=== PATIENT | male | born 1960 | race Native Hawaiian/Other Pacific Islander ===

== ENCOUNTER 2017-09-06 11:32 | Observation (INO) | payer SELFPAY ==
[~2017-09-06] VITALS: Ht 165.1 cm; Wt 65.0 kg
[2017-09-06 11:35] VITALS: BP 161/96; PULSE 61; RESP 17; TEMP 98; O2SAT 98
--- NOTE | 2017-09-06 11:41 | PD ---
Physical Exam Date Seen by Provider: Sep 06, 2017 Time Seen by Provider: 11:36 Narrative 57-year-old male presents to emergency Department with complaints of chest pain since 8:00 last night. Patient reports his pain is central in his chest. He rates the pain a 4/10. He states it feels as if he has difficulty taking a breath. He denies any shortness of breath. No nausea vomiting. No diaphoresis. He was seen in urgent care this morning and referred to the ER. He states that he had similar discomfort last month and was seen at urgent care and started on medication for reflux. No history of coronary disease, hypertension or diabetes. He does take an aspirin a day. Vital signs reviewed. Pt. waiting for bed placement. [facility] Medical Record Reviewed: No Supervised Visit with MAURICIO: Douglas Lau Sep 06, 2017 11:41
--- NOTE | 2017-09-06 11:41 | PD ---
Physical Exam Date Seen by Provider: Sep 06, 2017 Time Seen by Provider: 11:36 Narrative 57-year-old male presents to emergency Department with complaints of chest pain since 8:00 last night. Patient reports his pain is central in his chest. He rates the pain a 4/10. He states it feels as if he has difficulty taking a breath. He denies any shortness of breath. No nausea vomiting. No diaphoresis. He was seen in urgent care this morning and referred to the ER. He states that he had similar discomfort last month and was seen at urgent care and started on medication for reflux. No history of coronary disease, hypertension or diabetes. He does take an aspirin a day. Vital signs reviewed. Pt. waiting for bed placement. [facility] Medical Record Reviewed: No Supervised Visit with MAURICIO: Douglas Lau Sep 06, 2017 11:41
--- NOTE | 2017-09-06 11:41 | PD ---
Physical Exam Date Seen by Provider: Sep 06, 2017 Time Seen by Provider: 11:36 Narrative 57-year-old male presents to emergency Department with complaints of chest pain since 8:00 last night. Patient reports his pain is central in his chest. He rates the pain a 4/10. He states it feels as if he has difficulty taking a breath. He denies any shortness of breath. No nausea vomiting. No diaphoresis. He was seen in urgent care this morning and referred to the ER. He states that he had similar discomfort last month and was seen at urgent care and started on medication for reflux. No history of coronary disease, hypertension or diabetes. He does take an aspirin a day. Vital signs reviewed. Pt. waiting for bed placement. [facility] Medical Record Reviewed: No Supervised Visit with MAURICIO: Douglas Lau Sep 06, 2017 11:41
[2017-09-06] MEDS ORDERED: OMEP40CA2 PO (11:43)
[2017-09-06] MEDS ORDERED: ASPIRIN 81 MG CHEW TAB PO ONE (12:00)
[2017-09-06] MEDS ORDERED: MORPHINE SULFATE 4 MG/ML INJ IV PUSH ONE (12:00)
[2017-09-06] MEDS ORDERED: SODIUM CHLORID 0.9% 500 ML INJ 500 ML IV ONE (12:00)
[2017-09-06] MEDS ORDERED: SODIUM CHLORIDE 0.9% FLUSH 10 ML FLUSH IVF PRN (12:00)
[2017-09-06] MEDS ORDERED: NITROGLYCERIN 2% OINT 1 GM PACKET TOP ONE (12:00)
[2017-09-06] MEDS: METOPROLOL TARTRATE 5 MG/5 ML VIAL IVS SCH ×3 (12:05→12:31)
--- NOTE | 2017-09-06 12:07 | PD ---
HPI Chief Complaint: Chest Pain Time Seen by Provider: 11:54 Travel History International Travel<30 days: No Contact w/Intl Traveler<30days: No Traveled to known affect area: No History of Present Illness HPI 57-year-old Croatian male who does not speak Indonesian presents to emergency department after being seen at [facility] with anterior chest pain which started at 8 PM last evening. Patient was evaluated there, showing ST elevations in the the V2, 3 and 4 leads. Patient was given 325 mg aspirin as well as 0.4 mg sublingual nitroglycerin with improvement of his pain. Patient refused ambulance transfer, but was brought here by his family friend for further evaluation and treatment. Patient's pain is currently a 6 out of 10. Patient has no history of heart disease in the past. He has history of kidney stones requiring stents in the past. He describes it as a sharp tight pain in the anterior chest. He has nausea but no vomiting. No recent fever chills or other symptoms. He has no known drug allergies. PFSH Past Medical History Chest Pain: Yes Kidney Stones: Yes Past Surgical History Other Surgery: Yes (FOR KIDNEY STONES) Social History Alcohol Use: No Tobacco Use: No Substance Use: No Allergies-Medications (Allergen,Severity, Reaction): Coded Allergies: No Known Allergies (Unverified , 09/06/17) Reported Meds & Prescriptions Reported Meds & Active Scripts Active Reported Omeprazole 40 Mg Cap 40 Mg PO DAILY Review of Systems ROS Limitations: Language Barrier Except as stated in HPI: all other systems reviewed are Neg General / Constitutional: No: Fever Eyes: No: Visual changes HENT: No: Headaches Cardiovascular: Positive: Chest Pain or Discomfort, No: Palpitations, Irregular Rhythm, Tachycardia, Diaphoresis, Syncope, Dyspnea on exertion, Varicosities, Edema, Claudication Respiratory: No: Shortness of Breath Gastrointestinal: No: Abdominal Pain Genitourinary: No: Dysuria Musculoskeletal: No: Pain Skin: No Rash Neurologic: No: Weakness Psychiatric: No: Depression Endocrine: No: Polydipsia Hematologic/Lymphatic: No: Easy Bruising Physical Exam Narrative GENERAL: Patient appears anxious. SKIN: Warm and dry. Normal color. Normal turgor. No diaphoresis. HEAD: Atraumatic. Normocephalic. EYES: Pupils equal and round. No scleral icterus. No injection or drainage. ENT: No nasal bleeding or discharge. Mucous membranes pink and moist. Pharynx is clear. Airway is patent. NECK: Trachea midline. Supple nontender. CARDIOVASCULAR: Regular rate and rhythm. No murmurs gallops or rubs appreciated. RESPIRATORY: No accessory muscle use. Clear to auscultation. Breath sounds equal bilaterally. GASTROINTESTINAL: Abdomen soft, non-tender, nondistended. Hepatic and splenic margins not palpable. MUSCULOSKELETAL: Extremities without clubbing, cyanosis, or edema. No obvious deformities. NEUROLOGICAL: Awake and alert. No obvious cranial nerve deficits. Motor grossly within normal limits. Five out of 5 muscle strength in the arms and legs. Normal speech. PSYCHIATRIC: Appropriate mood and affect; insight and judgment normal. Data Data Last Documented VS Vital Signs Date Time Temp Pulse Resp B/P (MAP) Pulse Ox O2 Delivery O2 Flow Rate FiO2 09/06/17 11:35 98.0 61 17 161/96 (117) 98 Room Air Orders Orders Electrocardiogram (09/06/17 11:54) Basic Metabolic Panel (Bmp) (09/06/17 11:54) Ckmb (Isoenzyme) Profile (09/06/17 11:54) Complete Blood Count With Diff (09/06/17 11:54) Magnesium (Mg) (09/06/17 11:54) Prothrombin Time / Inr (Pt) (09/06/17 11:54) Act Partial Throm Time (Ptt) (09/06/17 11:54) Troponin I (09/06/17 11:54) Chest, Single Ap (09/06/17 11:54) Ecg Monitoring (09/06/17 11:54) Bilateral Bp Monitoring (09/06/17 11:54) Iv Access Insert/Monitor (09/06/17 11:54) Oximetry (09/06/17 11:54) Oxygen Administration (09/06/17 11:54) Aspirin Chew (Aspirin Chew) (09/06/17 12:00) Morphine Inj (Morphine Inj) (09/06/17 12:00) Nitroglycerin 2% Oint (Nitroglycerin 2% (09/06/17 12:00) Sodium Chloride 0.9% Flush (Ns Flush) (09/06/17 12:00) Metoprolol Tartrate Inj (Lopressor Inj) (09/06/17 12:00) Sodium Chlorid 0.9% 500 Ml Inj (Ns 500 M (09/06/17 12:00) Ondansetron Inj (Zofran Inj) (09/06/17 12:15) CKMB (09/06/17 12:20) CKMB% (09/06/17 12:20) Labs Laboratory Tests Test 09/06/17 12:20 Prothrombin Time 11.2 SEC Prothromb Time International Ratio 1.0 RATIO Activated Partial Thromboplast Time 21.9 SEC Blood Urea Nitrogen 11 MG/DL Creatinine 1.31 MG/DL Random Glucose 93 MG/DL Calcium Level 9.8 MG/DL Magnesium Level 2.1 MG/DL Sodium Level 136 MEQ/L Potassium Level 3.6 MEQ/L Chloride Level 103 MEQ/L Carbon Dioxide Level 26.3 MEQ/L Anion Gap 7 MEQ/L Estimat Glomerular Filtration Rate 57 ML/MIN Total Creatine Kinase 222 U/L Troponin I LESS THAN 0.02 NG/ML MDM Medical Decision Making Medical Screen Exam Complete: Yes Emergency Medical Condition: Yes Differential Diagnosis Chest pain. OH. Non-STEMI. Narrative Course Patient appears medically stable at time of exam. Labs ordered including CBC, CMP, cardiac panel, coagulation studies, and urinalysis. EKG and chest x-ray are ordered. EKG shows sinus bradycardia with flipped T-wave in lead 3. This is reviewed with Dr. Valdes. Patient is given 500 mL was normal saline bolus, 4 mg Zofran IV, 2 mg morphine IV, 5 mg metoprolol IV, and 1 inch of 2% nitroglycerin paste. Chest x-ray shows no acute process per radiologist. Coagulation studies are normal. CMP shows normal electrolytes, creatinine of 1.31, GFR 57, first troponin is less than 0.02. CBC 1330 hrs. patient states pain is improved to a 2 out of 10. Patient to be admitted to the chest pain center for further evaluation and treatment. Diagnosis Primary Impression: Chest pain at rest Admitting Information Admitting Physician Requests: Observation Condition: Stable Brandon Rodríguez Sep 06, 2017 12:07
[2017-09-06] MEDS ORDERED: ONDANSETRON HCL 4 MG/2 ML VIAL IV PUSH ONE (12:15)
--- NOTE | 2017-09-06 12:45 | RADRPT ---
EXAM DATE/TIME: 09/06/2017 12:30 [facility] COMPARISON: No previous studies available for comparison. INDICATIONS : Patient states chest pain. MEDICAL HISTORY : None. SURGICAL HISTORY : None. ENCOUNTER: Initial ACUITY: 1 day PAIN SCORE: 8/10 LOCATION: Bilateral chest FINDINGS: A single view of the chest demonstrates the lungs to be symmetrically aerated without evidence of mas s, infiltrate or effusion. The cardiomediastinal contours are unremarkable. Osseous structures are intact. CONCLUSION: 1. No acute cardiopulmonary disease. Jose Hicks MD on September 06, 2017 at 12:43 Board Certified Radiologist. This report was verified electronically.
[2017-09-06 13:00] VITALS: BP 151/90; PULSE 50
[2017-09-06 13:05] LABS: PROTHROMBIN TIME - PATIENT 11.2 SEC (9.8-11.6)
[2017-09-06 13:20] LABS: BICARBONATE 26.3 MEQ/L (21.0-32.0); BLOOD UREA NITROGEN 11 MG/DL (7-18); CALCIUM 9.8 MG/DL (8.5-10.1); CHLORIDE 103 MEQ/L (98-107); CREATININE 1.31 MG/DL (0.60-1.30); GLOMERULAR FILTRATION RATE 57 ML/MIN (>89); GLUCOSE,RANDOM 93 MG/DL (74-106); MAGNESIUM 2.1 MG/DL (1.5-2.5); SODIUM (NA) 136 MEQ/L (136-145)
[2017-09-06 13:25] LABS: TROPONIN I LESS THAN 0.02 NG/ML (0.02-0.05)
[2017-09-06 14:03] LABS: AUTOMATED NEUTROPHIL # 8.1 TH/MM3 (1.8-7.7); BASOPHIL # 0.1 TH/MM3 (0-0.2); BASOPHIL % 0.8 % (0.0-2.0); EOSINOPHIL # 0.2 TH/MM3 (0-0.4); EOSINOPHIL % 2.2 % (0.0-4.0); HEMATOCRIT 43.2 % (39.0-51.0); HEMOGLOBIN 14.9 GM/DL (13.0-17.0); LYMPH % 14.3 % (9.0-44.0); LYMPHOCYTE # 1.5 TH/MM3 (1.0-4.8); MEAN CELL VOLUME 81.4 FL (80.0-100.0); MEAN CORPUSCULAR HGB CONC 34.4 % (32.0-36.0); MEAN PLATELET VOLUME 8.8 FL (7.0-11.0); MONO % 4.4 % (0.0-8.0); MONOCYTE # 0.5 TH/MM3 (0-0.9); NEUT % 78.3 % (16.0-70.0); PLATELET COUNT 199 TH/MM3 (150-450); RED BLOOD COUNT 5.31 MIL/MM3 (4.50-5.90); WHITE BLOOD COUNT 10.4 TH/MM3 (4.0-11.0)
[2017-09-06] MEDS ORDERED: ONDANSETRON HCL 4 MG/2 ML VIAL IV PUSH PRN (15:00)
[2017-09-06] MEDS ORDERED: ACETAMINOPHEN 500 MG CPLT PO PRN (15:00)
[2017-09-06] MEDS ORDERED: NITROGLYCERIN 0.4 MG SL 25 TABS/BTL SL PRN (15:00)
[2017-09-06 16:28] LABS: TROPONIN I LESS THAN 0.02 NG/ML (0.02-0.05)
[2017-09-06 18:48] VITALS: BP 132/81; PULSE 65
[2017-09-06 19:46] LABS: TROPONIN I LESS THAN 0.02 NG/ML (0.02-0.05)
[2017-09-06 20:36] VITALS: BP 135/88; PULSE 66; RESP 18; TEMP 98.2; O2SAT 99
[2017-09-06 21:10] VITALS: PULSE 63
[2017-09-06] MEDS: SODIUM CHLORIDE 0.9% FLUSH 10 ML FLUSH IV FLUSH SCH (22:56)
[2017-09-06 23:22] VITALS: BP 140/91; PULSE 53; RESP 19; TEMP 98.2; O2SAT 99
[2017-09-07] VITALS (8 sets, daily range): BP systolic 102–137; BP diastolic 73–84; PULSE 53–72; RESP 16–20; TEMP 97.8–98.5; O2SAT 96–99
--- NOTE | 2017-09-07 07:57 | HHI.HP ---
HPI Primary Care Physician No Primary Care Physician Chief Complaint Chest pain History of Present Illness 57-year-old male with no past medical history presents to emergency room for further evaluation of chest pain. Interview completed with interpretation services. He is [place] to [place], [place] last [place], and speaks Korean . Onset one month ago. Location substernal. First described as sharp pain and breathing made discomfort worse, but later stated pain not sharp and breathing did not make pain worse. Verified change in description with obstetrical anesthesiologist. No radiation of pain. Duration ranges from 1-5 days. Nonexertional. No associated symptoms of n, v, sob, or diaphoresis. precipitating factors resting and laying still, stating feeling the pain more at rest. Relieving factors movement and keeping busy. No recent illness, injury, trauma, fever, or chills. Review of Systems General: No fatigue,weakness, fever, chills, or recent illness. Has been in his general state of health. Arrived from [facility] ago. CV: As stated above. No current chest pain or pressure. RESP: No SOB, cough, or recent respiratory infection. GI: GI: "Full feeling" after eating, pointing to substernal and throat area. No change in appetite but endorses over the last year decrease his intake due to full feeling. No unintentional weight gain or lost. No bowel changes. Denies feelings of burning or sore taste in back of throat. No nausea or vomiting. EXT: No lower leg edema MS: No discomfort or change in ROM NEURO: No LOC or motor/sensory deficits PSYCH: No anxiety or situational stress. SKIN: No rashes, no concerning lesions Past Family Social History Allergies: Coded Allergies: No Known Allergies (Unverified , 09/06/17) Past Medical History None Past Surgical History "Kidney" surgery Reported Medications Reported Meds & Active Scripts Active Reported No medications, vitamins, or supplementations. Active Ordered Medications Current Medications Medications (Trade) Dose Ordered Sig/Justin Route Start Time Stop Time Status Last Admin (NS Flush) 2 ml UNSCH PRN IVF 09/06/17 12:00 (NS Flush) 2 ml BID IV FLUSH 09/06/17 21:00 09/06/17 22:56 (Tylenol) 500 mg Q4H PRN PO 09/06/17 15:00 09/06/17 22:56 (Zofran Inj) 4 mg Q6H PRN IV PUSH 09/06/17 15:00 (Nitrostat Sl) 0.4 mg Q5M PRN SL 09/06/17 15:00 (Aspirin) 325 mg DAILY PO 09/07/17 09:00 Family History Noncontributory for early onset cardiovascular disease. Social History No known CAD, HTN, DM, or HLD. Lifelong nonsmoker. Denies any alcohol or illegal drug use. Endorses an active lifestyle. Past cardiac testing None Physical Exam Vital Signs Vital Signs Date Time Temp Pulse Resp B/P (MAP) Pulse Ox O2 Delivery O2 Flow Rate FiO2 09/07/17 07:29 98.2 72 20 128/83 (98) 99 09/07/17 06:00 21 09/07/17 04:03 53 09/07/17 03:31 97.8 58 18 102/73 (83) 99 09/07/17 00:19 18 09/07/17 00:05 65 09/06/17 23:22 98.2 53 19 140/91 (107) 99 09/06/17 21:10 63 09/06/17 20:36 98.2 66 18 135/88 (104) 99 09/06/17 18:48 65 132/81 (98) 09/06/17 13:00 50 151/90 (110) 09/06/17 13:00 100 Room Air 09/06/17 11:35 98.0 61 17 161/96 (117) 98 Room Air Physical Exam GENERAL: Alert WN, WD, NAD, pleasant, male HEAD: NC, AT EYES: Sclera clear, conjunctiva without injection ENT: Mucous membranes pink and moist CV: RRR, without murmur, rub, gallop, no JVD, S1-S2 no S3-S4. Chest wall nontender with palpation. RESP: Clear lungs throughout bilateral, no crackles, wheeze, rhonchi, symmetrical chest rise, nonlabored, able to speak in full sentences ABD: Soft, NT, ND, no masses BACK: Scoliosis present EXT: Pulses +24, no dependent edema MS: Normal tone 4 extremities, nontender, no obvious deformities, full range of motion NEURO: CN II through CN XII grossly intact, motor strength 5/5 PSYCH: A+O 3, pleasant affect, appropriate mood, insight and judgment SKIN: Normal turgor, normal texture, no lesions, no rashes, brisk cap refill, even hair distribution Laboratory Laboratory Tests Test 09/06/17 12:20 09/06/17 13:50 09/06/17 15:34 09/06/17 18:30 Prothrombin Time 11.2 Prothromb Time International Ratio 1.0 Activated Partial Thromboplast Time 21.9 Blood Urea Nitrogen 11 Creatinine 1.31 Random Glucose 93 Calcium Level 9.8 Magnesium Level 2.1 Sodium Level 136 Potassium Level 3.6 Chloride Level 103 Carbon Dioxide Level 26.3 Anion Gap 7 Estimat Glomerular Filtration Rate 57 Total Creatine Kinase 222 163 159 Creatine Kinase MB 2.6 2.0 Troponin I LESS THAN 0.02 LESS THAN 0.02 LESS THAN 0.02 White Blood Count 10.4 Red Blood Count 5.31 Hemoglobin 14.9 Hematocrit 43.2 Mean Corpuscular Volume 81.4 Mean Corpuscular Hemoglobin 28.0 Mean Corpuscular Hemoglobin Concent 34.4 Red Cell Distribution Width 13.0 Platelet Count 199 Mean Platelet Volume 8.8 Neutrophils (%) (Auto) 78.3 Lymphocytes (%) (Auto) 14.3 Monocytes (%) (Auto) 4.4 Eosinophils (%) (Auto) 2.2 Basophils (%) (Auto) 0.8 Neutrophils # (Auto) 8.1 Lymphocytes # (Auto) 1.5 Monocytes # (Auto) 0.5 Eosinophils # (Auto) 0.2 Basophils # (Auto) 0.1 CBC Comment DIFF FINAL Differential Comment Result Diagram: 09/06/17 1350 09/06/17 1220 Imaging Last Impressions Chest X-Ray 09/06/17 1154 Signed Impressions: Service Date/Time: Wednesday, September 06, 2017 12:30 - CONCLUSION: 1. No acute cardiopulmonary disease. Jose Hicks MD Course EKG NSR, normal axis, no st t segment changes Caprini VTE Risk Assessment Caprini VTE Risk Assessment: No/Low Risk (score <= 1) Caprini Risk Assessment Model Point Value = 1 Point Value = 2 Point Value = 3 Point Value = 5 Age 41-60 Minor surgery BMI > 25 kg/m2 Swollen legs Varicose veins or History of unexplained or recurrent spontaneous Oral contraceptives or hormone replacement Sepsis (< 1 month) Serious lung disease, including pneumonia (< 1 month) Abnormal pulmonary function Acute myocardial infarction Congestive heart failure (< 1 month) History of inflammatory bowel disease Medical patient at bed rest Age 61-74 Arthroscopic surgery Major open surgery (> 45 min) Laparoscopic surgery (> 45 min) Malignancy Confined to bed (> 72 hours) Immobilizing plaster cast Central venous access Age >= 75 History of VTE Family history of VTE Factor V Leiden Prothrombin [id number] Lupus anticoagulant Anticardiolipin antibodies Elevated serum homocysteine Heparin-induced thrombocytopenia Other congenital or acquired thrombophilia Stroke (< 1 month) Elective arthroplasty Hip, pelvis, or leg fracture Acute spinal cord injury (< 1 month) Prophylaxis Regimen Total Risk Factor Score Risk Level Prophylaxis Regimen 0-1 Low Early ambulation 2 Moderate Order ONE of the following: *Sequential Compression Device (SCD) *Heparin 5000 units SQ BID 3-4 Higher Order ONE of the following medications: *Heparin 5000 units SQ TID *Enoxaparin/Lovenox 40 mg SQ daily (WT < 150 kg, CrCl > 30 mL/min) *Enoxaparin/Lovenox 30 mg SQ daily (WT < 150 kg, CrCl > 10-29 mL/min) *Enoxaparin/Lovenox 30 mg SQ BID (WT < 150 kg, CrCl > 30 mL/min) AND/OR *Sequential Compression Device (SCD) 5 or more Highest Order ONE of the following medications: *Heparin 5000 units SQ TID (Preferred with Epidurals) *Enoxaparin/Lovenox 40 mg SQ daily (WT < 150 kg, CrCl > 30 mL/min) *Enoxaparin/Lovenox 30 mg SQ daily (WT < 150 kg, CrCl > 10-29 mL/min) *Enoxaparin/Lovenox 30 mg SQ BID (WT < 150 kg, CrCl > 30 mL/min) AND *Sequential Compression Device (SCD) Assessment and Plan Assessment and Plan #1 Atypical chest pain-admitted to chest pain center. Ruled out with 3 sets of EKG and cardiac enzymes. Seen and evaluated by Dr. Deepali Squires. Proceed with chemical stress testing. If unremarkable, plans to discharge home later this afternoon. Test and plan of care explained with obstetrical anesthesiologist. #2 GERD-symptoms may be reflux related, omeprazole 20mg PO Altagracia Schumacher Sep 07, 2017 07:57
[2017-09-07] MEDS: SODIUM CHLORIDE 0.9% FLUSH 10 ML FLUSH IV FLUSH SCH (08:53)
[2017-09-07] MEDS ORDERED: ASPIRIN 325 MG TAB PO SCH (09:00)
--- NOTE | 2017-09-07 14:37 | EKG ---
Date Performed: 09/06/2017 Time Performed: 18:44:08 PTAGE: 57 years EKG: SINUS BRADYCARDIA BORDERLINE ECG Since PREVIOUS TRACING , no significant change noted DOCTOR: Depeali Squires Interpretating Date/Time 09/07/2017 14:36:13
[2017-09-07] MEDS ORDERED: REGADENOSON INJ 0.4 MG/5 ML SYR ONE (15:35)
[2017-09-07] MEDS ORDERED: PANTOPRAZOLE SOD 40 MG DELAYED RELEASE TAB PO ONE (16:30)
--- NOTE | 2017-09-07 17:13 | RADRPT ---
EXAM DATE/TIME: 09/07/2017 14:45 [facility] COMPARISON: No previous studies available for comparison. INDICATIONS : Anterior chest pain. Angina. DOSE: 25.7 mCi Tc99m Myoview at stress. 8.8 mCi Tc99m Myoview at rest. 0.4 mg Lexiscan STRESS SYMPTOMS: Shortness of breath. EJECTION FRACTION: > 70% MEDICAL HISTORY : None SURGICAL HISTORY : Kidney stents. ENCOUNTER: Initial ACUITY: 1 day PAIN SCALE: 6/10 LOCATION: Bilateral chest TECHNIQUE: The patient underwent pharmacologic stress with infusion of prescribed dose. Continuous ECG tracing was monitored during stress. Gated SPECT imaging was performed after stress and conventional SPECT i maging was performed at rest. The examination was performed on a SPECT/CT scanner, both attenuation and non-corrected datasets were reviewed. FINDINGS: DISTRIBUTION: The maximum perfused segment at stress is in the inferoseptal wall. PERFUSION STUDY: The pattern of perfusion at stress is within normal limits. GATED STUDY: There is intact wall motion and thickening without hypokinetic or dyskinetic segments. CONCLUSION: 1. Unremarkable myocardial perfusion scan. RISK CATEGORY: Low (<1% Annual Mortality Rate) Junito Neal MD on September 07, 2017 at 17:11 Board Certified Radiologist. This report was verified electronically.
[2017-09-07] MEDS ORDERED: OMEP40CA2 PO (17:18)
--- NOTE | 2017-09-07 17:19 | HHI.DCPOC ---
Discharge Care Plan Diagnosis: (1) Atypical chest pain (2) GERD (gastroesophageal reflux disease) Goals to Promote Your Health * To prevent worsening of your condition and complications * To maintain your health at the optimal level Directions to Meet Your Goals Take your medications as prescribed Follow your dietary instruction Follow activity as directed Keep your appointments as scheduled Take your immunizations and boosters as scheduled If your symptoms worsen call your PCP, if no PCP go to Urgent Care Center or Emergency Room Smoking is Dangerous to Your Health. Avoid second hand smoke Call the 24-hour hour crisis hotline for domestic abuse at Altagracia Schumacher Sep 07, 2017 17:19
--- NOTE | 2017-09-07 17:19 | HHI.DCPOC ---
Discharge Care Plan Diagnosis: (1) Atypical chest pain (2) GERD (gastroesophageal reflux disease) Goals to Promote Your Health * To prevent worsening of your condition and complications * To maintain your health at the optimal level Directions to Meet Your Goals Take your medications as prescribed Follow your dietary instruction Follow activity as directed Keep your appointments as scheduled Take your immunizations and boosters as scheduled If your symptoms worsen call your PCP, if no PCP go to Urgent Care Center or Emergency Room Smoking is Dangerous to Your Health. Avoid second hand smoke Call the 24-hour hour crisis hotline for domestic abuse at Altagracia Schumacher Sep 07, 2017 17:19
--- NOTE | 2017-09-07 17:19 | HHI.DCPOC ---
Discharge Care Plan Diagnosis: (1) Atypical chest pain (2) GERD (gastroesophageal reflux disease) Goals to Promote Your Health * To prevent worsening of your condition and complications * To maintain your health at the optimal level Directions to Meet Your Goals Take your medications as prescribed Follow your dietary instruction Follow activity as directed Keep your appointments as scheduled Take your immunizations and boosters as scheduled If your symptoms worsen call your PCP, if no PCP go to Urgent Care Center or Emergency Room Smoking is Dangerous to Your Health. Avoid second hand smoke Call the 24-hour hour crisis hotline for domestic abuse at Altagracia Schumacher Sep 07, 2017 17:19
--- NOTE | 2017-09-07 17:27 | EKG ---
Date Performed: 09/06/2017 Time Performed: 12:22:08 PTAGE: 57 years EKG: SINUS BRADYCARDIA MODERATE VOLTAGE CRITERIA FOR LVH, CONSIDER NORMAL VARIANT BORDERLINE ECG NO PREVIOUS TRACING DOCTOR: Deepali Squires Interpretating Date/Time 09/07/2017 17:25:57
--- NOTE | 2017-09-07 17:28 | EKG ---
Date Performed: 09/06/2017 Time Performed: 15:42:22 PTAGE: 57 years EKG: SINUS BRADYCARDIA EARLY REPOLARIZATION BORDERLINE ECG Since PREVIOUS TRACING , no significant change noted DOCTOR: Deepali Squires Interpretating Date/Time 09/07/2017 17:27:27
--- NOTE | 2017-09-07 17:30 | TR ---
Date Performed: 09/07/2017 Time Performed: 15:38:15 DOCTOR: Deepali Squires DRUG LIST: CLINICAL HISTORY: ANGINA REASON FOR TEST: REASON FOR ENDING: OBSERVATION: CONCLUSION: Lexiscan stress test was performed under standard four minute protocol. Radionuclid e was injected one minute prior to ending the test. No electrocardiographic abormalities were present to suggest ischemia. Nuclear imaging and interpretation are pending. COMMENTS:
== END 2017-09-07 23:34 | disposition home or self-care (01) ==
LOC: NEPE 11:32 → NEDA 14:12 → NEPHCDU 16:18 → NEDA 16:38 → NEDH 16:44 → NEDA 16:46 → NEPFCDU 16:53
PROVIDERS: ADMIT Internal Medicine Cardiovascular Disease; ATTEND Internal Medicine Cardiovascular Disease
DX: R07.89 Other chest pain (principal); K21.9 Gastro-esophageal reflux disease without esophagitis; R11.0 Nausea; Z87.442 Personal history of urinary calculi
CPT/HCPCS: 71010; 78452; 80048; 82550; 82552; 83735; 84484; 85025; 85610; 85730; 93005; 93017; 96361; 96374; 96375; 99285; A9502; G0378; J2270; J2405; J2785; J7040